=== PATIENT | female | born 1995 | race Caucasian/White ===

== ENCOUNTER → 2019-05-10 12:30 | Outpatient (CLI) | payer OTHER, SELFPAY ==
--- NOTE | 2019-05-10 12:35 | DI.ECHO.S_ITS ---
[facility]---------+ [facility] +---------+ : : [address] : [address] : : : : [id number] : : : : Phone: [phone]---------+ Echocardiogram Report + + :Name: LAMAR LINTON Study Date: 05/10/2019 Height: 67 in : :[facility] Weight: 145 lb : : Gender: Female BSA: 1.8 m2 : :: 1995 Age: 23 yrs BP: 122/80 mmHg: :Reason For Study: CHRONIC ISCHEMIC HD : : Performed By: Иван Solorio : :Referring: TRACIE WALKER : + + Interpretation Summary The ejection fraction is estimated to be 60-65%. There is no significant valvular heart disease. Procedure: A two-dimensional transthoracic echocardiogram with color flow and Doppler was performed. The study quality was technically good. There is no prior echocardiogram noted for this patient. The patient was in normal sinus rhythm during the exam. Left Ventricle: The left ventricle is normal in size. There is normal left ventricular wall thickness. The ejection fraction is estimated to be 60-65%. There are no focal wall motion abnormalities. Right Ventricle: The right ventricle is normal in size and function. Atria: Both atria are normal in size. The interatrial septum is intact with no evidence for an atrial septal defect. Mitral Valve: The mitral valve is normal in structure and function. There is no mitral regurgitation noted. Aortic Valve: The aortic valve is trileaflet. The aortic valve opens well. No aortic regurgitation is present. Tricuspid Valve: The tricuspid valve is normal in structure and function. No tricuspid regurgitation. Pulmonary artery pressures cannot be estimated because of the lack of a measurable TR jet velocity. Pulmonic Valve: The pulmonic valve is normal in structure and function. There is trace pulmonic regurgitation. Great Vessels: The aortic root is normal size. The dimensions of the ascending aorta are normal. The pulmonary artery is normal size. The IVC is of normal diameter and collapses greater than 50% with a sniff. This suggests a low right atrial pressure of 3 mm Hg. Pericardium/ Pleura There is no pericardial effusion. There is no pleural effusion. MMode/2D Measurements & Calculations LVIDd: 4.5 cm LVOT diam: 2.0 cm LVIDs: 3.1 cm Ao root diam: 2.6 cm FS: 30.1 % Aortic Jxn: 2.2 cm EPSS: 0.51 cm asc Aorta Diam: 2.7 cm IVSd: 0.73 cm Ao Arch Diam (Prox Trans): 1.8 cm LVPWd: 0.71 cm LV mabry. diameter/BSA (cm/m^2): 2.5 LV sys. diameter/BSA (cm/m^2): 1.8 LA dimension: 2.4 cm RA long axis: 4.2 cm LA A2 area: 13.6 cm2 RA area: 13.6 cm2 LA A4 area: 14.2 cm2 RA vol: 37.9 ml LA length (vol): 4.6 cm RA : 21.5 ml/m2 LA vol: 35.7 ml IVC diam: 2.0 cm LA vol index: 20.2 ml/m2 Doppler Measurements & Calculations Ao V2 max: 139.3 cm/sec LVOT Max Fady: 112.1 cm/sec Ao V2 mean: 96.4 cm/sec LV V1 max P.0 mmHg Ao max P.8 mmHg LV V1 VTI: 19.6 cm Ao mean P.1 mmHg ARCELIA(I,D): 2.6 cm2 Ao V2 VTI: 24.6 cm ARCELIA(V,D): 2.6 cm2 sev ratio: 0.80 ARCELIA indexed to BSA (cm^2/m^2): 1.5 MV E max fady: 82.8 cm/sec PA V2 max: 84.5 cm/sec MV A max fady: 47.7 cm/sec PA V2 mean: 63.1 cm/sec MV E/A: 1.7 PA mean P.7 mmHg Med Peak E' Fady: 11.7 cm/sec PA pr(Accel): 26.6 mmHg E/E' med: 7.1 PA Accel Time: 0.11 sec Lat Peak E' Fady: 16.8 cm/sec E/E' lat: 4.9 E/e' average: 6.0 MV dec time: 0.15 sec SV(LVOT): 63.5 ml Reading Physician:05:02 PM
--- NOTE | 2019-05-10 12:36 | DI.RAD.S_ITS ---
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 COMPARISON: None. FINDINGS: Surgical changes and devices: None. Lungs and pleura: Lungs are clear. No pleural effusions or pneumothorax. Mediastinum: Mediastinal contours are normal. Heart size is normal. Bones and chest wall: No suspicious bony abnormalities. Soft tissues appear unremarkable. IMPRESSION: No acute pulmonary process. Dictated by: Cristel Souza M.D. on 05/10/2019 at 16:21 Approved by: Cristel Souza M.D. on 05/10/2019 at 16:22
--- NOTE | 2019-05-24 16:01 | PM.PFT.1 ---
Pulmonary Function Test Referral & Results Date Patient Seen: 05/10/19 Requesting provider: Kaushik Wright Results: The spirometry demonstrates an FVC of 4.17 L which is 97% of predicted. The FEV1 was measured at 3.16 L which is 86% of predicted. The FEV1/FVC ratio was 76 which is 88% of predicted. Following the administration of bronchodilator there was a 29% improvement in FEF 25-75%. No lung volumes were performed The diffusing capacity was measured at 22.82 which is 76% of predicted. No hemoglobin value was provided, so no correction for potential anemia could be made, if appropriate. Interpretation: This study demonstrates perhaps very mild obstructive lung disease based on very slight improvement in small airway flow after bronchodilator as noted above with improvement in FEF 25-75% There may also be a mild reduction in diffusing capacity if patient is not anemic Clinical correlation suggested
== END ==
PROVIDERS: Visit Provider Orthopaedic Surgery
DX: J92.0 Pleural plaque with presence of asbestos (principal)
CPT/HCPCS: 71046; 93005; 93306; 94060; 94729

== ENCOUNTER → 2019-05-10 12:51 | Outpatient (CLI) | payer OTHER, SELFPAY | PROVIDERS: Visit Provider Orthopaedic Surgery | DX: I25.9 Chronic ischemic heart disease, unspecified (principal) | CPT/HCPCS: 93010 ==